=== PATIENT | female | born 1995 | race Two or more races ===

== ENCOUNTER → 2022-01-30 | Outpatient (CLI) | payer MEDICAID ==
[2022-01-30 11:21] LABS: Basophils # (auto) 0 10 ^3/uL (0-0.2); Basophils % (auto) 0.4 % (0.0-2.0); Eosinophils # (auto) 0 10 ^3/uL (0-0.8); Eosinophils % (auto) 0.6 % (0.0-7.0); Lymphocytes # (auto) 1.9 10 ^3/uL (0.4-5.4); Lymphocytes % (auto) 30.8 % (10.0-50.0); Mean Corpuscular Hemoglobin 28.3 pg (28.0-32.0); Mean Corpuscular Hgb Conc. 33.3 g/dL (32.0-36.0); Monocytes # (auto) 0.4 10 ^3/uL (0-1.3); Monocytes % (auto) 5.7 % (0.0-12.0); Neutrophils % (auto) 62.5 % (37.0-80.0); Nucleated Red Blood Cells % 0.1 %; Red Blood Cells 4.23 10^6/uL (4.0-5.20); Red Cell Distribution Width 14.1 % (11.8-14.3); White Blood Cell 6.3 10^3/uL (4.4-10.8)
[2022-01-30 12:52] LABS: Amphetamine Screen, Urine NEGATIVE (NEGATIVE); Barbiturate Scree,Urine NEGATIVE (NEGATIVE); Benzodiazephine Screen, Urine NEGATIVE (NEGATIVE); Cannabinoid Screen, Urine NEGATIVE (NEGATIVE)
[2022-01-30 12:54] LABS: Alcohol, Urine < 3.0 mg/dL (0-10); Cocaine Screen, Urine NEGATIVE (NEGATIVE); Opiate Scree,Urine NEGATIVE (NEGATIVE); Phencyclidine Screen, Urine NEGATIVE (NEGATIVE)
[2022-01-31 06:06] LABS: RPR Non Reactive (Non Reactive)
== END | disposition home or self-care (01) ==
LOC: LAB 10:27
PROVIDERS: ATTEND Obstetrics & Gynecology Obstetrics
DX: Z34.00 Encounter for supervision of normal first pregnancy, unspecified trimester (principal); Z31.430 Encounter of female for testing for genetic disease carrier status for procreative management; Z36.0 Encounter for antenatal screening for chromosomal anomalies; N39.0 Urinary tract infection, site not specified; Z3A.00 Weeks of gestation of pregnancy not specified
CPT/HCPCS: 36415; 80307; 83036; 84112; 84702; 85025; 86592; 86703; 86762; 86850; 86900; 86901; 87086; 87340

== ENCOUNTER → 2022-05-15 | Outpatient (CLI) | payer MEDICAID ==
[2022-05-15 08:24] LABS: Basophils # (auto) 0 10 ^3/uL (0-0.2); Basophils % (auto) 0.2 % (0.0-2.0); Eosinophils # (auto) 0.1 10 ^3/uL (0-0.8); Eosinophils % (auto) 1.1 % (0.0-7.0); Hematocrit 35.8 % (36.0-46.0); Hemoglobin 11.8 g/dL (12.2-16.2); Lymphocytes # (auto) 2.4 10 ^3/uL (0.4-5.4); Lymphocytes % (auto) 25.2 % (10.0-50.0); Mean Corpuscular Hemoglobin 29.4 pg (28.0-32.0); Mean Corpuscular Hgb Conc. 33.1 g/dL (32.0-36.0); Mean Corpuscular Volume 88.9 fL (80.0-100.0); Monocytes # (auto) 0.9 10 ^3/uL (0-1.3); Neutrophils # (auto) 6.1 10 ^3/uL (1.6-8.6); Neutrophils % (auto) 64.5 % (37.0-80.0); Nucleated Red Blood Cells % 0.1 %; Red Blood Cells 4.02 10^6/uL (4.0-5.20); Red Cell Distribution Width 14.3 % (11.8-14.3); White Blood Cell 9.5 10^3/uL (4.4-10.8)
== END | disposition home or self-care (01) ==
LOC: LAB 08:12
PROVIDERS: ATTEND Obstetrics & Gynecology
DX: Z34.00 Encounter for supervision of normal first pregnancy, unspecified trimester (principal); Z3A.00 Weeks of gestation of pregnancy not specified
CPT/HCPCS: 36415; 82951; 85025

== ENCOUNTER → 2022-07-19 | Outpatient (CLI) | payer MEDICAID ==
[2022-07-19 11:26] LABS: Basophils # (auto) 0 10 ^3/uL (0-0.2); Basophils % (auto) 0.4 % (0.0-2.0); Eosinophils # (auto) 0 10 ^3/uL (0-0.8); Eosinophils % (auto) 0.5 % (0.0-7.0); Hematocrit 36.7 % (36.0-46.0); Hemoglobin 12.2 g/dL (12.2-16.2); Lymphocytes # (auto) 1.6 10 ^3/uL (0.4-5.4); Lymphocytes % (auto) 19.9 % (10.0-50.0); Mean Corpuscular Hemoglobin 28.8 pg (28.0-32.0); Mean Corpuscular Hgb Conc. 33.3 g/dL (32.0-36.0); Mean Corpuscular Volume 86.6 fL (80.0-100.0); Monocytes # (auto) 0.7 10 ^3/uL (0-1.3); Monocytes % (auto) 8.3 % (0.0-12.0); Neutrophils # (auto) 5.8 10 ^3/uL (1.6-8.6); Neutrophils % (auto) 70.9 % (37.0-80.0); Red Blood Cells 4.24 10^6/uL (4.0-5.20); Red Cell Distribution Width 13.6 % (11.8-14.3); White Blood Cell 8.2 10^3/uL (4.4-10.8)
[2022-07-20 08:06] LABS: RPR Non Reactive (Non Reactive)
== END | disposition home or self-care (01) ==
LOC: LAB 11:11
PROVIDERS: ATTEND Obstetrics & Gynecology
DX: Z34.80 Encounter for supervision of other normal pregnancy, unspecified trimester (principal)
CPT/HCPCS: 36415; 84112; 85025; 86592

== ENCOUNTER 2022-08-08 08:19 | Inpatient (IN) | payer MEDICAID ==
[~2022-08-08] VITALS: Ht 157.5 cm; Wt 77.1 kg
[2022-08-08] MEDS ORDERED: PHISODERM TOP SOLN 240ML BTL TOP PRN (08:45)
[2022-08-08] MEDS ORDERED: DERMOPLAST 60ML BOTTLE TOP PRN (08:45)
[2022-08-08] MEDS ORDERED: PROMETHAZINE HCL 25 MG/ML 1ML IV PRN (08:45)
[2022-08-08] MEDS ORDERED: WITCH HAZEL-GLYCERIN PAD TOP PRN (08:45)
[2022-08-08] MEDS ORDERED: LIDOCAINE 2%HCL (LOCAL ANESTH.) INJ 20ML MDV IJ PRN (08:45)
[2022-08-08] MEDS ORDERED: LACTATED RINGER'S 1,000 ML IV SCH (08:45)
[2022-08-08] MEDS ORDERED: BUTORPHANOL TARTRATE 2 MG/1 ML VIAL IV PRN ×2 (08:45)
[2022-08-08 09:00] LABS: Basophils # (auto) 0 10 ^3/uL (0-0.2); Basophils % (auto) 0.3 % (0.0-2.0); Eosinophils # (auto) 0 10 ^3/uL (0-0.8); Eosinophils % (auto) 0.2 % (0.0-7.0); Hematocrit 39.3 % (36.0-46.0); Hemoglobin 13.2 g/dL (12.2-16.2); Lymphocytes % (auto) 17.2 % (10.0-50.0); Mean Corpuscular Hemoglobin 28.6 pg (28.0-32.0); Mean Corpuscular Hgb Conc. 33.6 g/dL (32.0-36.0); Mean Corpuscular Volume 84.9 fL (80.0-100.0); Monocytes # (auto) 0.7 10 ^3/uL (0-1.3); Monocytes % (auto) 6.1 % (0.0-12.0); Neutrophils # (auto) 8.9 10 ^3/uL (1.6-8.6); Neutrophils % (auto) 76.2 % (37.0-80.0); Nucleated Red Blood Cells % 0.1 %; Red Blood Cells 4.63 10^6/uL (4.0-5.20); Red Cell Distribution Width 13.6 % (11.8-14.3); White Blood Cell 11.7 10^3/uL (4.4-10.8)
[2022-08-08 09:14] LABS: INR 0.88 (0.9-1.15); Partial Thromboplastin Time 27.9 sec (24.6-33.4)
[2022-08-08 09:18] LABS: Albumin 3.1 g/dL (3.4-5.0); Calcium 9.1 mg/dL (8.5-10.1); Potassium 3.6 mmol/L (3.5-5.1)
[2022-08-08 09:22] LABS: BUN/Creatinine Ratio 17.2 (10.0-20.0); Bilirubin, Total 0.7 mg/dL (0.2-1.0); Total Protein 7.4 g/dL (6.4-8.2)
[2022-08-08] MEDS ORDERED: LACT. RINGERS/OXYTOCIN 20UNITS 500 ML IV ONE ×2 (09:30→10:00)
[2022-08-08] MEDS ORDERED: ePHEDrine SULFATE 50 MG/ML AMP IV ONE (09:30)
[2022-08-08] MEDS ORDERED: NALOXONE HCL 0.4 MG/ML VIAL IV ONE (09:30)
[2022-08-08] MEDS ORDERED: ROPIVACAINE HCL 200 ML EPI SCH (09:30)
[2022-08-08] MEDS ORDERED: LACTATED RINGER'S 1,000 ML IV ONE (09:30)
[2022-08-08] MEDS ORDERED: fentaNYL CITRATE 100 MCG/2 ML VL IV ONE (09:30)
[2022-08-08] MEDS ORDERED: Lidocaine W-Epinephrine 1.5%-1:200,000 INJ 10ml Vial IJ ONE (09:30)
[2022-08-08 09:32] LABS: Urine Bacteria NONE SEEN /hpf (None Seen); Urine Blood 3+ /uL (Negative); Urine Mucus FEW (None Seen); Urine Specific Gravity 1.022 (1.001-1.035); Urine WBC 9 /hpf (0 - 5)
[2022-08-08 09:39] LABS: Alcohol, Urine < 3.0 mg/dL (0-10); Amphetamine Screen, Urine NEGATIVE (NEGATIVE); Barbiturate Scree,Urine NEGATIVE (NEGATIVE); Benzodiazephine Screen, Urine NEGATIVE (NEGATIVE); Cannabinoid Screen, Urine NEGATIVE (NEGATIVE); Cocaine Screen, Urine NEGATIVE (NEGATIVE); Opiate Scree,Urine NEGATIVE (NEGATIVE); Phencyclidine Screen, Urine NEGATIVE (NEGATIVE)
[2022-08-08] MEDS ORDERED: IBUPROFEN 600 MG TAB PO PRN (17:00)
[2022-08-08] MEDS ORDERED: ACETAMINOPHEN 325 MG TAB PO PRN (17:00)
[2022-08-08 18:30] VITALS: BP 132/73
[2022-08-08 22:40] VITALS: BP 127/70
[2022-08-09] MEDS ORDERED: TETANUS-DIPTH-ACEL PERTUSSIS 0.5ML SYR Tdap IM ONE (02:15)
[2022-08-09 02:40] VITALS: BP 123/75
[2022-08-09 07:00] VITALS: BP 130/83
[2022-08-09 07:07] LABS: RPR Non Reactive (Non Reactive)
[2022-08-09 11:00] VITALS: BP 137/90
[2022-08-09 15:10] VITALS: BP 125/81
== END 2022-08-09 17:47 | disposition home or self-care (01) | DRG 560 ==
LOC: LDRP 08:19 → OBSVTOIN 08:34 → LDRP 08:35
PROVIDERS: ADMIT Obstetrics & Gynecology; ATTEND Obstetrics & Gynecology
PROC: 10E0XZZ Delivery of Products of Conception, External Approach (ICD-10-PCS; principal; 2022-08-08)
PROC: 0KQM0ZZ Repair Perineum Muscle, Open Approach (ICD-10-PCS; 2022-08-08)
PROC: 3E0R3BZ Introduction of Anesthetic Agent into Spinal Canal, Percutaneous Approach (ICD-10-PCS; 2022-08-08)
PROC: 00HU33Z Insertion of Infusion Device into Spinal Canal, Percutaneous Approach (ICD-10-PCS; 2022-08-08)
DX: O69.81X0 Labor and delivery complicated by cord around neck, without compression, not applicable or unspecified (principal); Z37.0 Single live birth; O70.1 Second degree perineal laceration during delivery; Z3A.39 39 weeks gestation of pregnancy
CPT/HCPCS: 36415; 59025; 59409; 62282; 80053; 80307; 81001; 85025; 85610; 85730; 86592; 86850; 86900; 86901; 90715; 94760; 96360; 96361; 96365; 96366; 96372; G0378; J2590

== ENCOUNTER → 2023-03-28 | Outpatient (CLI) | payer MEDICAID ==
[2023-03-28 15:35] LABS: Basophils # (auto) 0 10 ^3/uL (0-0.2); Basophils % (auto) 0.5 % (0.0-2.0); Eosinophils # (auto) 0.1 10 ^3/uL (0-0.8); Eosinophils % (auto) 1.2 % (0.0-7.0); Hematocrit 40.7 % (36.0-46.0); Hemoglobin 13.4 g/dL (12.2-16.2); Lymphocytes # (auto) 1.7 10 ^3/uL (0.4-5.4); Lymphocytes % (auto) 32.4 % (10.0-50.0); Mean Corpuscular Hemoglobin 28.3 pg (28.0-32.0); Mean Corpuscular Hgb Conc. 32.8 g/dL (32.0-36.0); Mean Corpuscular Volume 86.2 fL (80.0-100.0); Monocytes # (auto) 0.4 10 ^3/uL (0-1.3); Monocytes % (auto) 6.9 % (0.0-12.0); Nucleated Red Blood Cells % 0.1 %; Red Blood Cells 4.73 10^6/uL (4.0-5.20); Red Cell Distribution Width 13.8 % (11.8-14.3); White Blood Cell 5.2 10^3/uL (4.4-10.8)
[2023-03-28 16:31] LABS: T3 Total 1.2 ng/mL (0.60-1.81)
[2023-03-28 16:32] LABS: Free T4 (Free Thyroxine) 1.1 ng/dL (0.89-1.76)
[2023-03-28 17:07] LABS: Thyroid Stimulating Hormone 1.32 uIU/mL (0.358-3.74)
[2023-03-29 08:06] LABS: RPR Non Reactive (Non Reactive)
== END | disposition home or self-care (01) ==
LOC: LAB 14:41
PROVIDERS: ATTEND Obstetrics & Gynecology
DX: Z34.80 Encounter for supervision of other normal pregnancy, unspecified trimester (principal); Z31.430 Encounter of female for testing for genetic disease carrier status for procreative management; Z3A.00 Weeks of gestation of pregnancy not specified
CPT/HCPCS: 36415; 82306; 84144; 84439; 84443; 84480; 84702; 85025; 86592; 86703; 86762; 86850; 86900; 86901; 87086; 87340

== ENCOUNTER 2023-08-05 10:11 | Emergency (ER) | payer MEDICAID ==
[~2023-08-05] VITALS: Ht 157.5 cm; Wt 67.7 kg
[2023-08-05 10:38] VITALS: BP 140/89; PULSE 92; RESP 16; TEMP 99.2; O2SAT 99
[2023-08-05 10:58] LABS: Urine Amorphous Crystal FEW /hpf (None Seen); Urine Bacteria FEW /hpf (None Seen); Urine Blood 3+ /uL (Negative); Urine Clarity Turbid (Clear); Urine Color Colorless (Yellow); Urine Protein, UAD TRACE (Negative); Urine Specific Gravity 1.013 (1.001-1.035); Urine Urobilinogen Normal (Negative); Urine WBC 16 /hpf (0 - 5); Urine pH 7.5 (5.0-9.0)
[2023-08-05] MEDS ORDERED: CEFP200T15 PO (11:15)
== END 2023-08-05 11:18 | disposition home or self-care (01) ==
LOC: ER 10:11
DX: O23.42 Unspecified infection of urinary tract in pregnancy, second trimester (principal); Z3A.24 24 weeks gestation of pregnancy; Z79.899 Other long term (current) drug therapy
CPT/HCPCS: 81001; 81025

== ENCOUNTER → 2023-08-27 | Outpatient (CLI) | payer MEDICAID ==
[~2023-08-27] MED LIST: CEFP200T15 PO
== END | disposition home or self-care (01) ==
LOC: LAB 08:13
PROVIDERS: ATTEND Obstetrics & Gynecology
DX: Z34.80 Encounter for supervision of other normal pregnancy, unspecified trimester (principal); Z72.51 High risk heterosexual behavior; Z3A.00 Weeks of gestation of pregnancy not specified
CPT/HCPCS: 82951

== ENCOUNTER → 2023-09-18 | Outpatient (CLI) | payer MEDICAID ==
[2023-09-18 10:25] LABS: Basophils # (auto) 0 10 ^3/uL (0-0.2); Basophils % (auto) 0.3 % (0.0-2.0); Eosinophils # (auto) 0 10 ^3/uL (0-0.8); Eosinophils % (auto) 0.6 % (0.0-7.0); Hematocrit 36.3 % (36.0-46.0); Hemoglobin 12.2 g/dL (12.2-16.2); Lymphocytes # (auto) 1.8 10 ^3/uL (0.4-5.4); Mean Corpuscular Hgb Conc. 33.5 g/dL (32.0-36.0); Mean Corpuscular Volume 89.6 fL (80.0-100.0); Monocytes # (auto) 0.6 10 ^3/uL (0-1.3); Monocytes % (auto) 7.5 % (0.0-12.0); Neutrophils # (auto) 5.1 10 ^3/uL (1.6-8.6); Neutrophils % (auto) 67.6 % (37.0-80.0); Red Blood Cells 4.05 10^6/uL (4.0-5.20); Red Cell Distribution Width 13.8 % (11.8-14.3); White Blood Cell 7.5 10^3/uL (4.4-10.8)
[2023-09-19 07:07] LABS: RPR Non Reactive (Non Reactive)
== END | disposition home or self-care (01) ==
LOC: LAB 10:06
PROVIDERS: ATTEND Obstetrics & Gynecology
DX: Z34.80 Encounter for supervision of other normal pregnancy, unspecified trimester (principal); Z3A.00 Weeks of gestation of pregnancy not specified
CPT/HCPCS: 36415; 82728; 83540; 83550; 85025; 86592

== ENCOUNTER 2023-10-26 16:55 | Observation (INO) | payer MEDICAID | END 2023-10-26 18:11 | disposition home or self-care (01) | LOC: LDRP 16:55 | PROVIDERS: ADMIT Obstetrics & Gynecology; ATTEND Obstetrics & Gynecology | DX: O36.8130 Decreased fetal movements, third trimester, not applicable or unspecified (principal); Z3A.35 35 weeks gestation of pregnancy | CPT/HCPCS: 59025; 76818; 81002; 94760; G0378 ==

== ENCOUNTER 2023-11-17 16:18 | Observation (INO) | payer MEDICAID | END 2023-11-17 17:33 | disposition home or self-care (01) | LOC: LDRP 16:18 | PROVIDERS: ADMIT Obstetrics & Gynecology; ATTEND Obstetrics & Gynecology | DX: O62.9 Abnormality of forces of labor, unspecified (principal); O26.893 Other specified pregnancy related conditions, third trimester; R10.9 Unspecified abdominal pain; Z3A.39 39 weeks gestation of pregnancy | CPT/HCPCS: 59025; 81002; 94760; G0378 ==

== ENCOUNTER 2023-11-18 02:32 | Observation (INO) | payer MEDICAID ==
[~2023-11-18] VITALS: Ht 157.5 cm; Wt 74.8 kg
[2023-11-19] MEDS ORDERED: IBU600T PO (10:48)
== END 2023-11-18 03:58 | disposition home or self-care (01) ==
LOC: LDRP 02:32
PROVIDERS: ADMIT Obstetrics & Gynecology; ATTEND Obstetrics & Gynecology
DX: O62.9 Abnormality of forces of labor, unspecified (principal); Z3A.39 39 weeks gestation of pregnancy
CPT/HCPCS: 59025; 81002; 94760; G0378

== ENCOUNTER 2023-11-18 06:14 | Inpatient (IN) | payer MEDICAID ==
[~2023-11-18] VITALS: Ht 157.5 cm; Wt 68.0 kg
[2023-11-18] MEDS: LACT. RINGERS/OXYTOCIN 20UNITS 1,000 ML IV ONE (06:23)
[2023-11-18] MEDS ORDERED: LIDOCAINE 2%HCL (LOCAL ANESTH.) INJ 20ML MDV IJ PRN (06:30)
[2023-11-18] MEDS: TRANEXAMIC ACID 1,000 MG in SODIUM CHL 0.9% 100 ML IV ONE (06:30)
[2023-11-18] MEDS ORDERED: miSOPROStol 100 mcg TAB PR PRN (06:30)
[2023-11-18] MEDS ORDERED: METHYLERGONOVINE MALEATE 0.2 MG/ML AMP IM PRN (06:30)
[2023-11-18] MEDS ORDERED: ONDANSETRON HCL 4 MG/2 ML VIAL IV PRN (06:30)
[2023-11-18] MEDS ORDERED: CARBOPROST TROMETHAMINE 250 MCG/1ML VIAL IM PRN (06:30)
[2023-11-18] MEDS ORDERED: miSOPROStol 100 mcg TAB SL PRN (06:30)
[2023-11-18] MEDS: ePHEDrine SULFATE 50 MG/ML AMP IV ONE ×2 (06:45→07:00)
[2023-11-18] MEDS: fentaNYL CITRATE 100 MCG/2 ML VL IV ONE (06:45)
[2023-11-18] MEDS: PHISODERM TOP SOLN 240ML BTL TOP PRN (06:57)
[2023-11-18] MEDS: WITCH HAZEL-GLYCERIN PAD TOP PRN (06:57)
[2023-11-18] MEDS: DERMOPLAST 60ML BOTTLE TOP PRN (06:57)
[2023-11-18] MEDS: LACTATED RINGER'S 1,000 ML IV SCH (06:58)
[2023-11-18 06:59] LABS: Basophils # (auto) 0 10 ^3/uL (0-0.2); Basophils % (auto) 0.3 % (0.0-2.0); Eosinophils # (auto) 0 10 ^3/uL (0-0.8); Eosinophils % (auto) 0.5 % (0.0-7.0); Hematocrit 40.2 % (36.0-46.0); Hemoglobin 13.8 g/dL (12.2-16.2); Lymphocytes # (auto) 3.1 10 ^3/uL (0.4-5.4); Lymphocytes % (auto) 30.1 % (10.0-50.0); Mean Corpuscular Hemoglobin 30.4 pg (28.0-32.0); Mean Corpuscular Hgb Conc. 34.2 g/dL (32.0-36.0); Monocytes # (auto) 0.8 10 ^3/uL (0-1.3); Monocytes % (auto) 7.6 % (0.0-12.0); Neutrophils # (auto) 6.4 10 ^3/uL (1.6-8.6); Neutrophils % (auto) 61.5 % (37.0-80.0); Nucleated Red Blood Cells % 0.1 %; Red Blood Cells 4.52 10^6/uL (4.0-5.20); Red Cell Distribution Width 13.7 % (11.8-14.3); White Blood Cell 10.3 10^3/uL (4.4-10.8)
[2023-11-18] MEDS: LACTATED RINGER'S 1,000 ML IV ONE ×2 (06:59→07:08)
[2023-11-18] MEDS: NALOXONE HCL 0.4 MG/ML VIAL IV ONE (07:00)
[2023-11-18 07:13] LABS: Alanine Aminotransferase 15 U/L (7-40); Albumin 4.3 g/dL (3.2-4.8); Alkaline Phosphatase 166 U/L (46-116); Anion Gap 14 (5-15); Aspartate Aminotransferase 23 U/L (13-40); Blood Urea Nitrogen 6 mg/dL (9-23); Calcium 9.4 mg/dL (8.7-10.4); Carbon Dioxide 17 mmol/L (20-30); Chloride 105 mmol/L (98-107); Glucose 93 mg/dL (74-106); Potassium 3.5 mmol/L (3.5-5.1); Sodium 136 mmol/L (136-145)
[2023-11-18 07:15] LABS: INR 0.92 (0.9-1.15); Partial Thromboplastin Time 28.7 SEC (24.5-34.5); Prothrombin Time 9.8 sec (9.3-11.8)
[2023-11-18 07:30] LABS: Urine Bacteria None Seen /hpf (None Seen)
[2023-11-18 07:47] LABS: Urine Amorphous Crystal FEW /hpf (None Seen); Urine Blood Negative /uL (Negative); Urine Clarity Clear (Clear); Urine Color Light-Yellow (Yellow); Urine Protein, UAD TRACE (Negative); Urine Specific Gravity 1.016 (1.001-1.035); Urine Urobilinogen Normal (Negative); Urine WBC <1 /hpf (0 - 5)
[2023-11-18 07:53] LABS: Amphetamine Screen, Urine Neg (NEGATIVE); Benzodiazephine Screen, Urine Neg (NEGATIVE)
[2023-11-18 07:54] LABS: Barbiturate Scree,Urine Neg (NEGATIVE); Cannabinoid Screen, Urine Neg (NEGATIVE); Cocaine Screen, Urine Neg (NEGATIVE); Opiate Scree,Urine Neg (NEGATIVE); Phencyclidine Screen, Urine Neg (NEGATIVE)
[2023-11-18] MEDS: ROPIVACAINE HCL 200 ML ONE (08:53)
[2023-11-18] MEDS: LACT. RINGERS/OXYTOCIN 20UNITS 500 ML IV ONE ×2 (09:48→09:49)
[2023-11-18] MEDS: DIPHENOXYLATE W/ATROPINE 2.5 MG TAB PO SCH (10:00)
[2023-11-18 18:45] VITALS: BP 128/69; PULSE 88; RESP 18; TEMP 98.7; O2SAT 98
[2023-11-18] MEDS ORDERED: ACETAMINOPHEN 325 MG TAB PO PRN (19:45)
[2023-11-18] MEDS ORDERED: IBUPROFEN 600 MG TAB PO PRN (19:45)
[2023-11-18 23:17] VITALS: BP 119/67; PULSE 77; RESP 16; TEMP 98.5; O2SAT 97
[2023-11-19 03:00] VITALS: BP 113/67; PULSE 81; RESP 16; TEMP 98.5; O2SAT 98
[2023-11-19 07:00] VITALS: BP 119/64; PULSE 63; RESP 18; TEMP 98.5; O2SAT 100
[2023-11-19] MEDS ORDERED: IBU600T PO (10:48)
[2023-11-19 11:15] VITALS: BP 126/76; PULSE 74; RESP 20; TEMP 98.8; O2SAT 99
[2023-11-21 12:47] LABS: RPR Non Reactive (Non Reactive); Rubella Antibodies, IgG 1.67 index (Immune >0.99)
== END 2023-11-19 15:08 | disposition home or self-care (01) | DRG 560 ==
LOC: LDRP 06:14 → OBSVTOIN 06:26
PROVIDERS: ADMIT Obstetrics & Gynecology; ATTEND Obstetrics & Gynecology
PROC: 10E0XZZ Delivery of Products of Conception, External Approach (ICD-10-PCS; principal; 2023-11-18)
DX: O80 Encounter for full-term uncomplicated delivery (principal); Z37.0 Single live birth; Z3A.39 39 weeks gestation of pregnancy
CPT/HCPCS: 36415; 59025; 59409; 62282; 80053; 80307; 81001; 81002; 85025; 85610; 85730; 86592; 86703; 86762; 86803; 86850; 86900; 86901; 87340; 94760; 96360; 96361; 96365; 96366; G0378; J2405; J2590

== ENCOUNTER 2025-01-27 09:12 | Observation (INO) | payer MEDICAID ==
[~2025-01-27 09:12] MED LIST changes: -CEFP200T15 PO; +IBU600T PO
[2025-01-27] MEDS ORDERED: PREN-96 PO (10:10)
[2025-01-27] MEDS ORDERED: ASPI-543 PO (10:10)
--- NOTE | 2025-01-27 10:25 | DVH ---
BIOPHYSICAL PROFILE HISTORY: Ce TECHNIQUE: Multiple transabdominal real-time grayscale sonographic images through the gravid uterus o f the fetus with duplex doppler color flow and M-mode spectral analysis FINDINGS: BIOPHYSICAL PROFILE: breathing score: 2 movement score: 2 tone score: 2 Quantitative JOSE E score: 2 (JOSE E: 22.4 cm.) Total score: 8/8 Single live fetus in cephalic presentation. heart rate 137 beats per minute. Anterior placenta without previa or abruption Biophysical profile score 8/8 corresponding to an KATIE of 03/23/25 IMPRESSION: Biophysical profile score: 8/8
--- NOTE | 2025-01-27 10:35 | DVHDS2 ---
Physician Discharge Progress N Final Diagnosis: testing for polyhydramnios Operations or Procedures: Operations or Procedures 29yo IUP@32.1wks VSS per RN NST reactive per RN BPP /, JOSE E 22.4 cm, Vertex FKC/PTL/preE precautions reviewed Dr. Rae consulted, agrees with POC. Condition on Discharge: Stable Disposition: Home Discharge Instructions: Diet: Regular Activity: No Restrictions, As Tolerated Follow Up/Referral: Medications: see med list Follow Up Care: Specialist: f/u in 1wk Discharge Statement: "Patient was advised to return to the ER or call 911 if any headaches, dizziness, shortness of breath, chest pain, abdominal pain, bleeding, fevers, or worsening of medical condition. Patient was counseled about treatment plan, medications, possible side effects, patientverbalized understanding. All questions were answered to the best of my ability. This discharge took greater then 30 minutes in planning, reviewing documentation, counseling the patient, and discussing with other team members." Visit Coding OBGYN Date of Service: Jan 27, 2025 Billing Provider: LIBERTY ALVARES CNM SURGICAL ATTENDANT Common Visit Codes: 60898-[id number] OBS CARE (HIGH) SURGICAL ATTENDANT Procedure Codes: 30411-10- NON-STRESS TEST LIBERTY ALVARES CNM Jan 27, 2025 10:35
== END 2025-01-27 10:29 | disposition home or self-care (01) ==
LOC: LDRP 09:12 → UNDOADMOB 09:12 → LDRP 09:21
PROVIDERS: ADMIT Obstetrics & Gynecology; ATTEND Obstetrics & Gynecology
DX: O40.3XX0 Polyhydramnios, third trimester, not applicable or unspecified (principal); Z3A.32 32 weeks gestation of pregnancy; Z98.890 Other specified postprocedural states
CPT/HCPCS: 59025; 76819; 81002; 94760; G0378

== ENCOUNTER 2025-02-03 05:45 | Observation (INO) | payer MEDICAID ==
[~2025-02-03 05:45] MED LIST changes: +ASPI-543 PO; +PREN-96 PO
--- NOTE | 2025-02-03 09:21 | DVHDS2 ---
Physician Discharge Progress N Final Diagnosis: testing for polyhydramnios Operations or Procedures: Operations or Procedures 29yo IUP@33.1wks VSS NST reactive FKC/PTL precautions reviewed Dr. Rae consulted, agrees with POC. Other Interventions Other Interventions [address] [address] Ph: [phone] DIAGNOSTIC IMAGING Diagnostic Imaging Report : [id number] Signed PATIENT: MATT COUGHLIN ACCT: [id number] UNIT: [id number] : 1995 LOC: [facility] ROOM / BED: TRIAGE1 / A AGE / SEX: 29 / F ADM STATUS: ADM IN SERVICE 7 ORDERING PHYSICIAN: LIBERTY ALVARES CNM PROCEDURE(s): BPP - BIOPHYSICAL PROFILE REASON: poly ORDER NUMBER(s): [id number], ACCESSION NUMBER(s): [id number] BIOPHYSICAL PROFILE HISTORY: poly TECHNIQUE: Multiple transabdominal real-time grayscale sonographic images through the gravid uterus of the fetus with duplex Doppler color flow and M-mode spectral analysis FINDINGS: BIOPHYSICAL PROFILE: breathing score: 2 movement score: 2 tone score: 2 Quantitative JOSE E score: 2 (JOSE E: 21.4 Cm.) Total score: 8 The cervix not well visualized. Single live fetus in cephalic presentation. heart rate 134 beats per min gwendolyn. Anterior placenta without previa or abruption Possible nuchal cord is visualized. IMPRESSION: Biophysical profile score: 8 Possible nuchal cord is visualized. ATED BY: ALEKSANDR SOTO MD DICTATED DATE/TIME: 02/03/25918 SIGNED BY: ALEKSANDR SOTO MD SIGNED DATE/TIME: 02/03/25918 CC: Condition on Discharge: Stable Disposition: Home Discharge Instructions: Diet: Regular Activity: No Restrictions, As Tolerated Medications: see med list Follow Up Care: Specialist: f/u in 1wk Discharge Statement: "Patient was advised to return to the ER or call 911 if any headaches, dizziness, shortness of breath, chest pain, abdominal pain, bleeding, fevers, or worsening of medical condition. Patient was counseled about treatment plan, medications, possible side effects, patientverbalized understanding. All questions were answered to the best of my ability. This discharge took greater then 30 minutes in planning, reviewing documentation, counseling the patient, and discussing with other team members." Visit Coding OBGYN Date of Service: Feb 03, 2025 Billing Provider: LIBERTY ALVARES CNM TRUCKMAN Common Visit Codes: 77394-[id number] OBS CARE (HIGH) TRUCKMAN Procedure Codes: 71554-10- NON-STRESS TEST LIBERTY ALVARES CNM Feb 03, 2025 09:21
== END 2025-02-03 09:20 | disposition home or self-care (01) ==
LOC: LDRP 08:08
PROVIDERS: ADMIT Obstetrics & Gynecology; ATTEND Obstetrics & Gynecology
DX: O40.3XX0 Polyhydramnios, third trimester, not applicable or unspecified (principal); Z3A.33 33 weeks gestation of pregnancy; Z79.899 Other long term (current) drug therapy; Z98.890 Other specified postprocedural states
CPT/HCPCS: 59025; 76819; 81002; 94760; G0378

== ENCOUNTER 2025-02-07 18:41 | Observation (INO) | payer MEDICAID ==
[2025-02-07 19:25] LABS: Urine Protein, UAD Negative (Negative)
--- NOTE | 2025-02-07 19:45 | DVHDS2 ---
Physician Discharge Progress N Final Diagnosis: Hematuria in Operations or Procedures: Operations or Procedures NST Commentary: Commentary UA 3+ blood. Asymptomatic No other UA evidence of UTI Urine culture pending No vaginal bleeding status reassuring Condition on Discharge: Good Disposition: Home Discharge Instructions: Diet: Regular Activity: Light activity Follow Up/Referral: See Dr Rae this week Needs full work up for hematuria if it's confirmed on a separate occasion Medications: N/A Follow Up Care: Discharge Statement: "Patient was advised to return to the ER or call 911 if any headaches, dizziness, shortness of breath, chest pain, abdominal pain, bleeding, fevers, or worsening of medical condition. Patient was counseled about treatment plan, medications, possible side effects, patientverbalized understanding. All questions were answered to the best of my ability. This discharge took greater then 30 minutes in planning, reviewing document ation, counseling the patient, and discussing with other team members." Visit Coding OBGYN Date of Service: Feb 07, 2025 Billing Provider: NUBIA BLOCK DO DIE TURNER Common Visit Codes: 57374-XPW/OBS SAME DATE (HIGH) DIE TURNER Procedure Codes: 39721-24- NON-STRESS TEST NUBIA BLCOK DO Feb 07, 2025 19:45
== END 2025-02-07 20:35 | disposition home or self-care (01) ==
LOC: LDRP 18:41
PROVIDERS: ADMIT Obstetrics & Gynecology; ATTEND Obstetrics & Gynecology
DX: O26.893 Other specified pregnancy related conditions, third trimester (principal); R31.9 Hematuria, unspecified; Z3A.33 33 weeks gestation of pregnancy; Z98.890 Other specified postprocedural states
CPT/HCPCS: 59025; 81001; 81002; 87086; 94760; G0378

== ENCOUNTER 2025-02-09 06:21 | Observation (INO) | payer MEDICAID ==
[~2025-02-09] VITALS: Ht 157.5 cm; Wt 72.6 kg
--- NOTE | 2025-02-09 08:55 | DVH ---
BIOPHYSICAL PROFILE HISTORY: poly TECHNIQUE: Multiple transabdominal real-time grayscale sonographic images through the gravid uterus o f the fetus with duplex doppler color flow and M-mode spectral analysis FINDINGS: BIOPHYSICAL PROFILE: breathing score: 2 movement score: 2 tone score: 2 Quantitative JOSE E score: 2 (JOSE E: 20.0 cm.) Total score: 8/8 Single live fetus in cephalic presentation. heart rate 153 beats per minute. Grade 2 anterior placenta without previa or abruption Biophysical profile score 8/8 corresponding to an KATIE of 03/23/25 IMPRESSION: Biophysical profile score: 8/8
[2025-02-09] MEDS: TERBUTALINE SULFATE 1 MG/ML 1ML VIAL SC SCH (09:28)
--- NOTE | 2025-02-09 23:09 | DVHDS2 ---
Discharge Summary Date of Admission Feb 09, 2025 at 08:04 Date of Discharge: Feb 09, 2025 Admitting Diagnosis Thirty-four her friends to the P2 polyhydramnios Brief Hx & Hospital Course: NST BP P 34 week polyhydramnios Operations or Procedures NST BPP Condition at Discharge: Good Final Diagnosis/Problems List NSTBPP polyhydramnios Discharge Disposition: Home Discharge Instruct/Medications Diet: Regular Activity: No Restrictions, As Tolerated Scheduled Aspirin (Aspir-Low), 81 MG PO DAILY, (Reported) Vit W/ Ferrous Fumara ( One Daily), 1 TAB PO DAILY, (Reported) Scheduled PRN Ibuprofen Micronized (Motrin Tablet), 600 MG PO Q6HP PRN Discharge Statement: "Patient was advised to return to the ER or call 911 if any headaches, dizz iness, shortness of breath, chest pain, abdominal pain, bleeding, fevers, or worsening of medical condition. Patient was counseled about treatment plan, medications, possible side effects, patientverbalized understanding. All questions were answered to the best of my ability. This discharge took greater then 30 minutes in planning, reviewing documentation, counseling the patient, and discussing with other team members." ASSESSMENT ASSESSMENT Assessment Visit Coding OBGYN Date of Service: Feb 09, 2025 Billing Provider: CEZAR HALE DO UPKEEP WORKER Common Visit Codes: 05469-[id number] INP/OBS CARE(MOD), 24098-MMXIKREZSZ INP/OBS CARE(HIGH), 28923-TNH/OBS SAME DATE (LOW) UPKEEP WORKER Procedure Codes: 21274-22- NON-STRESS TEST CEZAR HALE DO Feb 09, 2025 23:09
== END 2025-02-09 09:55 | disposition home or self-care (01) ==
LOC: LDRP 08:04
PROVIDERS: ADMIT Obstetrics & Gynecology; ATTEND Obstetrics & Gynecology
DX: O40.3XX0 Polyhydramnios, third trimester, not applicable or unspecified (principal); Z3A.34 34 weeks gestation of pregnancy; Z98.890 Other specified postprocedural states
CPT/HCPCS: 59025; 76819; 81002; 96372; G0378; J3105

== ENCOUNTER 2025-02-16 06:50 | Observation (INO) | payer MEDICAID ==
--- NOTE | 2025-02-16 08:52 | DVH ---
BIOPHYSICAL PROFILE HISTORY: Poly Comparison Study: US BIOPHYSICAL PROFILE on DOS: 02/09/25, US BIOPHYSICAL PROFILE on DOS: 02/03/25, US BIOPHYSICAL PROFILE on DOS: 01/27/25, US BIOPHYSICAL PROFILE on DOS: 10/26/23 TECHNIQUE: Multiple real-time grayscale sonographic images through the gravid uterus of the fetus with duplex Doppler color flow and M-mode spectral analysis FINDINGS: BIOPHYSICAL PROFILE: breathing score: 2 movement score: 2 tone score: 2 Quantitative JOSE E score: 2 (JOSE E: 20.5 Cm.) Total score: 8 The cervix is not visualized Single live fetus in cephalic presentation. heart rate 144 beats per minute. Grade 2, anterior placenta without previa or abruption IMPRESSION: Biophysical profile score: 8 Incidental note of debris in the gallbladder.
--- NOTE | 2025-02-17 05:48 | DVHDS2 ---
Discharge Summary Date of Admission Feb 16, 2025 at 07:59 Date of Discharge: Feb 16, 2025 Admitting Diagnosis Thirty-five week polyhydramnios here for NST BPP both performed both reassuring Brief Hx & Hospital Course: NST BPP performed reassuring Operations or Procedures NST BPP Condition at Discharge: Good Final Diagnosis/Problems List 35 week reassuring polyhydramnios Discharge Disposition: Home Discharge Instruct/Medications Diet: Regular Activity: No Restrictions, As Tolerated Activity comment: Kick counts labor precautions Scheduled Aspirin (Aspir-Low), 81 MG PO DAILY, (Reported) Vit W/ Ferrous Fumara ( One Daily), 1 TAB PO DAILY, (Reported) Scheduled PRN Ibuprofen Micronized (Motrin Tablet), 600 MG PO Q6HP PRN Discharge Statement: "Patient was advised to return to the ER or call 911 if any headaches, dizziness, shortness of breath, chest pain, abdominal pain, bleeding, fevers, or worsening of medical condition. Patient was counseled about treatment plan, medications, possible side effects, patientverbalized understanding. All questions were answered to the best of my ability. This discharge took greater then 30 minutes in planning, reviewing documentation, counseling the patient, and discussing with other team members." ASSESSMENT ASSESSMENT Assessment Visit Coding OBGYN Date of Service: Feb 16, 2025 Billing Provider: CEZAR HALE DO TRACTOR DRIVER TEAMSTER Common Visit Codes: 69901-[id number] INP/OBS CARE(HIGH), 20672-MJG/OBS SAME DATE (LOW), 53100-QHG/OBS SAME DATE (MOD) TRACTOR DRIVER TEAMSTER Procedure Codes: 62584-85- NON-STRESS TEST CEZAR HALE DO Feb 17, 2025 05:48
== END 2025-02-16 09:20 | disposition home or self-care (01) ==
LOC: LDRP 07:59
PROVIDERS: ADMIT Obstetrics & Gynecology; ATTEND Obstetrics & Gynecology
DX: O40.3XX0 Polyhydramnios, third trimester, not applicable or unspecified (principal); Z3A.35 35 weeks gestation of pregnancy; Z98.890 Other specified postprocedural states
CPT/HCPCS: 59025; 76819; 81002; 94760; G0378

== ENCOUNTER 2025-02-19 06:11 | Observation (INO) | payer MEDICAID ==
--- NOTE | 2025-02-19 09:47 | DVH ---
BIOPHYSICAL PROFILE HISTORY: poly Comparison Study: US BIOPHYSICAL PROFILE on DOS: 02/16/25, US BIOPHYSICAL PROFILE on DOS: 02/09/25, US BIOPHYSICAL PROFILE on DOS: 02/03/25, US BIOPHYSICAL PROFILE on DOS: 01/27/25, US BIOPHYSICAL PROFILE on DOS: 10/26/23 TECHNIQUE: Multiple real-time grayscale sonographic images through the gravid uterus of the fetus with duplex Doppler color flow and M-mode spectral analysis FINDINGS: BIOPHYSICAL PROFILE: breathing score: 2 movement score: 2 tone score: 2 Quantitative JOSE E score: 2 (JOSE E: 17.9 Cm.) Total score: 8 The cervix is not evaluated Single live fetus in cephalic presentation. heart rate 138 beats per minute. Anterior placenta without previa or abruption IMPRESSION: Biophysical profile score: 8
--- NOTE | 2025-02-20 13:21 | DVHDS2 ---
Physician Discharge Progress N Final Diagnosis: polyhydramnia 35wks Operations or Procedures: Operations or Procedures nst reactive reviwed,sono Condition on Discharge: Good Disposition: Home Discharge Instructions: Diet: Regular, Consistent carbohydrate Activity: No Restrictions, As Tolerated Medications: na Follow Up Care: Specialist: 3d Discharge Statement: "Patient was advised to return to the ER or call 911 if any headaches, dizziness, shortness of breath, chest pain, abdominal pain, bleeding, fevers, or worsening of medical condition. Patient was counseled about treatment plan, medications, possible side effects, patientverbalized understanding. All questions were answered to the best of my ability. This discharge took greater then 30 minutes in planning, reviewing documentation, counseling the patient, and discussing with other team members." Visit Coding OBGYN Date of Service: Feb 19, 2025 Billing Provider: PATRICIA RANDOLPH DO QUARRY EQUIPMENT OPERATOR Common Visit Codes: 39011-SEKFEXG OBS CARE (HIGH) QUARRY EQUIPMENT OPERATOR Procedure Codes: 02553-81- NON-STRESS TEST PATRICIA RANDOLPH DO Feb 20, 2025 13:21
== END 2025-02-19 10:07 | disposition home or self-care (01) ==
LOC: LDRP 08:58
PROVIDERS: ADMIT Obstetrics & Gynecology; ATTEND Obstetrics & Gynecology
DX: O42.913 Preterm premature rupture of membranes, unspecified as to length of time between rupture and onset of labor, third trimester (principal); Z3A.35 35 weeks gestation of pregnancy; Z98.890 Other specified postprocedural states
CPT/HCPCS: 59025; 76819; 81002; 94760; G0378

== ENCOUNTER 2025-03-04 18:39 | Observation (INO) | payer MEDICAID ==
[~2025-03-04] VITALS: Ht 157.5 cm; Wt 74.8 kg
--- NOTE | 2025-03-04 19:37 | DVH ---
BIOPHYSICAL PROFILE HISTORY: NO HEART TONES AUSCULTATED TECHNIQUE: Multiple transabdominal real-time grayscale sonographic images through the gravid uterus of the fetus with duplex Doppler color flow and M-mode spectral analysis FINDINGS: BIOPHYSICAL PROFILE: breathing score: 0 movement score: 0 tone score: 0 Quantitative JOSE E score: 2 (JOSE E: 8. Cm.) Total score: 2/8 The cervix not visualized Single live fetus in cephalic presentation. heart rate 0 beats per minute. Anterior Grade 2-3 placenta without previa or abruption Single fetus at 37 weeks 2 days Biophysical profile score 2/8 corresponding to an KATIE of 03/23/2025. Estimated weight not calculated g IMPRESSION: 1. Biophysical profile score: 2/[address] Rae notified of results.
[2025-03-04] MEDS ORDERED: CEPH250C PO (21:46)
[2025-03-05] MEDS ORDERED: CEPH500T PO (06:52)
[2025-03-05] MEDS ORDERED: ZOFR4T PO (06:52)
[2025-03-05] MEDS ORDERED: DOCU-94 PO (06:52)
[2025-03-05] MEDS ORDERED: IBUP-1456 PO (06:52)
[2025-03-05] MEDS ORDERED: HYDR-4072 PO (06:52)
--- NOTE | 2025-03-05 06:56 | DVHDS2 ---
Physician Discharge Progress N Final Diagnosis: decreased movement DEMISE Operations or Procedures: Operations or Procedures nst reviwed no heart activity noted,sono confirmed demise Condition on Discharge: Good Disposition: Home Discharge Instructions: Diet: Regular Activity: No Restrictions, As Tolerated Follow Up/Referral: RETURN TO BIRTHPLACE TOMORROW 03/05/25 FOR YOUR Medications: CONTINUE TAKING ALL YOUR CURRENT MEDICATIONS PREVIOUSLY PRESCIBED. Follow Up Care: Specialist: 1d for cs Discharge Statement: "Patient was advised to return to the ER or call 911 if any headaches, dizziness, shortness of breath, chest pain, abdominal pain, bleeding, fevers, or worsening of medical condition. Patient was counseled about treatment plan, medications, possible side effects, patientverbalized understanding. All questions were answered to the best of my ability. This discharge took greater then 30 minutes in planning, reviewing documentation, counseling the patient, and discussing with other team members." Visit Coding OBGYN Date of Service: Mar 04, 2025 Billing Provider: PATRICIA RANDOLPH DO FAST FOOD COOK Common Visit Codes: 53245-BJNEQYL INP/OBS CARE (HIGH) FAST FOOD COOK Procedure Codes: 50995-31- NON-STRESS TEST PATRICIA RANDOLPH DO Mar 05, 2025 06:56
== END 2025-03-04 22:04 | disposition home or self-care (01) ==
LOC: LDRP 18:39
PROVIDERS: ADMIT Obstetrics & Gynecology; ATTEND Obstetrics & Gynecology
DX: O36.8130 Decreased fetal movements, third trimester, not applicable or unspecified (principal); O36.4XX0 Maternal care for intrauterine death, not applicable or unspecified; Z3A.37 37 weeks gestation of pregnancy; Z98.890 Other specified postprocedural states
CPT/HCPCS: 59025; 76819; 81002; 94760; A4649; G0378

== ENCOUNTER 2025-03-05 05:00 | Inpatient (IN) | payer MEDICAID ==
[2025-03-04 22:05] LABS: Hematocrit 36.2 % (36.0-46.0); Hemoglobin 12.1 g/dL (12.2-16.2); Mean Corpuscular Hemoglobin 29.9 pg (28.0-32.0); Mean Corpuscular Volume 89.5 fL (80.0-100.0); Nucleated Red Blood Cells % 0.1 %
[2025-03-04 22:12] LABS: Urine Protein, UAD 1+ (Negative)
[2025-03-04 22:20] LABS: INR 0.9 (0.9-1.15); Partial Thromboplastin Time 29.4 SEC (24.5-34.5); Prothrombin Time 9.6 sec (9.3-11.8)
[2025-03-04 22:21] LABS: Protein, Urine 54.5 mg/dL (1-14)
--- NOTE | 2025-03-04 22:22 | DVHHP ---
ADMIT DATE: 03/05/2025 CHIEF COMPLAINT: demise; desires primary . HISTORY OF PRESENT ILLNESS: The patient is a 29-year-old 3, para 2 with EDC 03/23, estimated gestational age of 37 weeks, admitted for primary secondary to demise. The patient desires to have , does not want to go through induction of labor. The patient understands risks, complications of surgery. She denies having any rupture of membranes or vaginal bleeding. She was last seen yesterday by Yasmine Nava, nurse practitioner. She started having decreased movement this morning. Ultrasound confirmed demise. PAST MEDICAL HISTORY: None. PAST SURGICAL HISTORY: None. SOCIAL HISTORY: None. FAMILY HISTORY: None. OBSTETRIC AND GYNECOLOGIC HISTORY: Two normal vaginal deliveries. REVIEW OF SYSTEMS: Consistent with HPI. PHYSICAL EXAMINATION: VITAL SIGNS: Stable, afebrile. HEENT: Within normal limits. CARDIOVASCULAR: Regular rate and rhythm. LUNGS: Clear to auscultation. BREASTS: Symmetrical, no masses. ABDOMEN: Gravid. . PELVIC: Deferred per the patient's request. EXTREMITIES: No clubbing, cyanosis or edema. IMPRESSION: * Intrauterine at 37 plus weeks, demise. * Desires primary . PLAN: Informed consent obtained for primary section. Risks and complications of surgery including infection, bleeding, hematoma formation, injury to bowel or bladder and surrounding organ, possibility of DVT, pulmonary embolism, and risks of anesthesia were discussed with the patient. Options reviewed. All questions answered. The patient fully understands. She wishes to proceed with planned procedure. DO VIANEY Thao/ALEXIS/VIBHA TID: [id number] RECEIPT: [id number]
[2025-03-04 22:26] LABS: Alanine Aminotransferase 10 U/L (7-40); Albumin 3.8 g/dL (3.2-4.8); Anion Gap 10 (5-15); BUN/Creatinine Ratio 33.3 (10.0-20.0); Blood Urea Nitrogen 18 mg/dL (9-23); Calcium 9.0 mg/dL (8.7-10.4); Carbon Dioxide 23 mmol/L (20-31); Chloride 106 mmol/L (98-107); Glucose 96 mg/dL (74-106); Potassium 3.5 mmol/L (3.5-5.1); Sodium 139 mmol/L (136-145); Total Protein 6.5 g/dL (5.7-8.2); Uric Acid 5.3 mg/dL (3.1-7.8)
[2025-03-04 22:27] LABS: Bilirubin, Total 0.7 mg/dL (0.2-1.0)
[2025-03-04 22:29] LABS: Alkaline Phosphatase 162 U/L (46-116)
[2025-03-04 22:34] LABS: Amphetamine Screen, Urine Neg (NEGATIVE); Barbiturate Scree,Urine Neg (NEGATIVE); Benzodiazephine Screen, Urine Neg (NEGATIVE); Cannabinoid Screen, Urine Neg (NEGATIVE); Cocaine Screen, Urine Neg (NEGATIVE); Opiate Scree,Urine Neg (NEGATIVE); Phencyclidine Screen, Urine Neg (NEGATIVE)
[~2025-03-05] VITALS: Ht 157.5 cm; Wt 74.8 kg
[2025-03-05] VITALS (19 sets, daily range): BP systolic 101–128; BP diastolic 64–86; PULSE 61–82; RESP 16–18; TEMP 97.9–98.4; O2SAT 95–100
[~2025-03-05 05:00] MED LIST changes: +CEPH250C PO
[2025-03-05] MEDS: METOCLOPRAMIDE HCL 5MG/ml INJ 2ml VIAL IV ONE (05:15)
[2025-03-05] MEDS: SODIUM CITR/CITRIC ACID ORAL SOLN 30 ML PO ONE (05:15)
[2025-03-05] MEDS: LACTATED RINGER'S 1,000 ML IV SCH (05:59)
[2025-03-05] MEDS ORDERED: ZOFR4T PO (06:52)
[2025-03-05] MEDS ORDERED: IBUP-1456 PO (06:52)
[2025-03-05] MEDS ORDERED: CEPH500T PO (06:52)
[2025-03-05] MEDS ORDERED: DOCU-94 PO (06:52)
[2025-03-05] MEDS ORDERED: HYDR-4072 PO (06:52)
[2025-03-05] MEDS ORDERED: ceFAZolin 1GM/50ML 50 ML IV SCH (07:00)
[2025-03-05] MEDS: GUM (CHEWING) 1 GUM CHEW CHEW ONE (07:00)
[2025-03-05] MEDS ORDERED: LACT. RINGERS/OXYTOCIN 20UNITS 1,000 ML IV ONE (07:00)
[2025-03-05] MEDS: TETRACAINE 1% INJ 2 ML VIAL IJ ONE (07:01)
[2025-03-05] MEDS: ceFAZolin 2 GM/D5W50ml 50 ML IV ONE (07:02)
--- NOTE | 2025-03-05 08:01 | DVHOP2 ---
Operative Report DATE OF OPERATION: 03/05/25 PREOPERATIVE DIAGNOSES: iup at 37wks demise,desires pcs POSTOPERATIVE DIAGNOSES: same SURGEON: Maria C Rae D.O./sandra ANESTHESIOLOGIST: alverto TYPE OF ANESTHESIA : spinal CONSENT: The patient was informed of the risks and benefits of the procedure. The patient was informed of the risks and benefits of the procedure. These include but are not limited to , complications of anesthesia, postoperative infection, incomplete relief of symptoms, recurrence of symptoms, damage to blood vessels, nerves and tendons, deep venous thrombosis, pulmonary embolism and possible need for repeat surgery in the future. FINDINGS: Baby [f] with Apgars of [0] and [0]. Grossly normal appearing tubes and ovaries.cord around left leg PROCEDURES: Primary low transverse section. PROCEDURE IN DETAIL: The patient was taken to the operating room. She already had an epidural in place. She was then placed in supine position with a leftward tilt. A Pfannenstiel skin incision was made 2 cm above the symphysis pubis. This incision was carried to the underlying layer of fascia. The fascia was nicked in the midline. The incision was extended laterally. The superior aspect of the fascial incision was grasped and elevated. The same procedure was done to the inferior aspect of the fascial incision. The rectus muscles were then in the midline. Peritoneum was identified and entered. Peritoneal incision was extended superiorly and inferiorly with good visualization of the bladder. Bladder blade was inserted. Vesicouterine peritoneum was identified and entered. Lower uterine segment was incised in a transverse fashion. The infant was delivered from vertex presentation. Infant was baby [f] with Apgars [0] and [0].there was a cord around baby"s left leg. Placenta was then removed manually. Uterus was exteriorized and cleared of all clots and debris. The incision was repaired using 0 Vicryl in a double-layered fashion. No bleeding was noted. Uterus was then returned to the abdomen. The gutters were cleared off all clots and debris. Peritoneum was closed using 0 Vicryl, fascia was closed using 0 Maxon, and skin was closed using martinez. The patient tolerated the procedure well. She was taken to the recovery room in stable condition. ESTIMATED BLOOD LOSS: Estimated blood loss was noted to be 500 mL. Visit Coding OBN Date of Service: Mar 05, 2025 Billing Provider: MARIA C RAE DO INVESTMENT TRADER Common Visit Codes: 38384-BBHWNEQ INP/OBS CARE (HIGH) INVESTMENT TRADER Procedure Codes: 71663-J-BKEFLOY DELIVERY ONLY MARIA C RAE DO Mar 05, 2025 08:01
--- NOTE | 2025-03-05 08:03 | POSTOP ---
Post-Operative Note Post-Operative Note Preop Diagnosis iup at 37wks with demise desires pcs Postop Diagnosis: same Operation performed pltcs Specimen baby girl,apgars 0 /0 Anesthesia: Regional Anesthesiologist: alverto Blood Loss(fluid mgmt) 500ml Surgeon Patricia [employer] sandra Implant na Complications & Mgmt none Date 03/05/25 Time 08:01 Visit Coding OBGYN Date of Service: Mar 05, 2025 Billing Provider: PATRICIA RAE DO INTERIOR MECHANIC Common Visit Codes: 35778-CWFOAUI INP/OBS CARE (HIGH) INTERIOR MECHANIC Procedure Codes: 27133-U-NOTGFTK DELIVERY ONLY PATRICIA RAE DO Mar 05, 2025 08:03
[2025-03-05] MEDS ORDERED: MIDAZOLAM HCL 2MG/2ML 2ml VIAL (1mg/ml) IV PRN (08:45)
[2025-03-05] MEDS ORDERED: HYDROmorphone HCL 2 MG/ML VL/or syr IV PRN ×2 (08:45)
[2025-03-05] MEDS ORDERED: ONDANSETRON HCL 4 MG/2 ML VIAL IV PRN ×2 (08:45)
[2025-03-05] MEDS ORDERED: hydrALAZINE HCL 20 MG/ML VL IV PRN (08:45)
[2025-03-05] MEDS ORDERED: NALOXONE HCL 0.4 MG/ML VIAL IV PRN (08:45)
[2025-03-05] MEDS ORDERED: diphenhydrAMINE HCL 50 MG/1 ML VL IV PRN (08:45)
[2025-03-05] MEDS: ONDANSETRON HCL 4 MG/2 ML VIAL IV PRN (09:18)
[2025-03-05] MEDS ORDERED: MORPHINE SULFATE 4 MG/ML SYR/VIAL IV PRN (10:00)
[2025-03-05 10:06] LABS: Urine Amorphous Crystal FEW /hpf (None Seen); Urine Protein, UAD Negative (Negative)
[2025-03-05] MEDS: LACTATED RINGER'S 1,000 ML IV ONE (13:04)
[2025-03-05] MEDS: ACETAMINOPHEN IV 1000 MG/100ML (10MG/ML) IV PRN (13:05)
[2025-03-05] MEDS: ceFAZolin 1GM/50ML 50 ML IV SCH (14:36)
[2025-03-05 18:48] LABS: Protein, Urine 16.6 mg/dL (1-14)
[2025-03-05] MEDS: AMMONIA 0.33 ML INHALANT IN ONE (20:28)
[2025-03-05 21:32] LABS: Hematocrit 37.4 % (36.0-46.0); Hemoglobin 12.0 g/dL (12.2-16.2); Mean Corpuscular Hemoglobin 29.6 pg (28.0-32.0); Mean Corpuscular Volume 92.4 fL (80.0-100.0); Nucleated Red Blood Cells % 0.1 %
[2025-03-06] VITALS (11 sets, daily range): BP systolic 109–131; BP diastolic 64–84; PULSE 64–91; RESP 16–18; TEMP 98–98.6; O2SAT 94–97
--- NOTE | 2025-03-06 04:24 | DVHPN2 ---
Progress Note Date Seen: Mar 06, 2025 Subjective S: Lochia minimal. Clear liquid diet well tolerated. Ambulating and voiding well w/o feeling dizzy or lightheaded. Pain relieved with analgesics. Passing flatus but no BM yet. w/o problem Desires and Requests to be discharged tomorrow vital signs Vital Sign Date Time Temp Pulse Resp B/P (MAP) Pulse Ox O2 Delivery O2 Flow Rate FiO2 03/06/25 01:59 64 18 113/71 (85) 95 03/05/25 22:59 98.4 98.4 03/05/25 19:00 Room Air 03/05/25 08:25 6.0 03/05/25 08:25 100 Total Intake and Output 03/05/25 03/05/25 03/06/25 15:00 23:00 07:00 Output Total 950 ml 1700 ml Balance -950 ml -1700 ml medications Current Medications Medications Dose Ordered Sig/Miroslava Route Start Time Stop Time Status Last Admin Dose Admin Lactated Ringer's 1,000 ml @ 125 mls/hr Q8H IV 03/05/25 05:15 03/05/25 21:04 125 MLS/HR Ondansetron HCl 4 mg Q4HP PRN IV 03/05/25 07:00 03/05/25 13:04 4 MG Diphenhydramine HCl 25 mg Q4HP PRN IV 03/05/25 08:45 Ondansetron HCl 4 mg Q4HP PRN IV 03/05/25 08:45 Cancel Cefazolin Sodium 50 ml @ 100 mls/hr Q8H IV 03/05/25 15:00 03/06/25 07:29 03/05/25 22:08 100 MLS/HR Morphine Sulfate 2 mg Q4HP PRN IV 03/05/25 10:00 Acetaminophen 1,000 mg Q8HPRN PRN IV 03/05/25 10:00 03/06/25 09:59 03/05/25 21:04 1,000 MG laboratory and microbiology Laboratory Tests 03/05/25 21:02 03/04/25 21:48 Test 03/04/25 21:48 Range/Units Serum Glucose 96 74-106 mg/dL Objective O: A&O x3 NAD. Afebrile, VSS Chest: heart and lung sounds normal. Breasts: Nipples intact w/o cracks or soreness Abdomen: normal BS, soft, non-tender, no rebound or guarding, fundus firm @ U- 1, Lower abdominal Incision site with Sylke dressing on, same clean, dry and intact. No edema, erythema or induration Extremities: no edema or tenderness Lochia - minimal Assessment/Plan A/P: 29yo now Post operative & ppd #1 s/p Primary Section Stillbirth (IUFD) doing well. Blood Type: A Rh: Positive Rubella Immune Pain control with oral medications Bowel regimen: Increase fluid intake and fiber in diet, Laxative PRN PP BCM Plan: Undecided Discharge plan: May discharge home later today / tomorrow if condition remains stable per consultation with Robert Rae DO Plan discussed with: Patient, Spouse Visit Coding OBGYN Date of Service: Mar 06, 2025 Billing Provider: HEMALATHA TRAN CNM FARMWORKER FRUIT Common Visit Codes: 70346-[id number] INP/OBS CARE(HIGH) HEMALATHA TRAN CNM Mar 06, 2025 04:24
--- NOTE | 2025-03-06 04:46 | DVHDS2 ---
Discharge Summary Date of Admission Mar 05, 2025 at 05:00 Date of Discharge: Mar 08, 2025 Admitting Diagnosis <> IUP at 37w 3d <> IUFD <> Patient Desires / prefers Primary Section Wounds: Lower abdominal incision site with sylke dressing on, same C/D/I Labs/Diagnostic Data: Laboratory Results Test 03/05/25 21:02 03/05/25 09:00 03/04/25 21:48 03/04/25 21:30 White Blood Count 9.7 10^3/uL (4.4-10.8) Red Blood Count 4.05 10^6/uL (4.0-5.20) Hemoglobin 12.0 g/dL (12.2-16.2) Hematocrit 37.4 % (36.0-46.0) Mean Corpuscular Volume 92.4 fL (80.0-100.0) Mean Corpuscular Hemoglobin 29.6 pg (28.0-32.0) Mean Corpuscular Hemoglobin Concent 32.0 g/dL (32.0-36.0) Red Cell Distribution Width 13.8 % (11.8-14.3) Platelet Count 175 10^3/uL (140-450) Mean Platelet Volume 9.4 fL (6.9-10.8) Neutrophils (%) (Auto) 76.8 % (37.0-80.0) Lymphocytes (%) (Auto) 15.2 % (10.0-50.0) Monocytes (%) (Auto) 7.6 % (0.0-12.0) Eosinophils (%) (Auto) 0.3 % (0.0-7.0) Basophils (%) (Auto) 0.1 % (0.0-2.0) Neutrophils # (Auto) 7.5 10 ^3/uL (1.6-8.6) Lymphocytes # (Auto) 1.5 10 ^3/uL (0.4-5.4) Monocytes # (Auto) 0.7 10 ^3/uL (0-1.3) Eosinophils # (Auto) 0 10 ^3/uL (0-0.8) Basophils # (Auto) 0 10 ^3/uL (0-0.2) Nucleated Red Blood Cells 0.1 % Uric Acid 4.0 mg/dL (3.1-7.8) Urine Color Light-yellow (Yellow) Urine Clarity Hazy (Clear) Urine pH 7.5 (5.0-9.0) Urine Specific [place] 1.017 (1.001-1.035) Urine Protein Negative (Negative) Urine Ketones Negative (Negative) Urine Blood 1+ /uL (Negative) Urine Nitrite Negative (Negative) Urine Bilirubin Negative (Negative) Urine Urobilinogen Normal mg/dL (Negative) Urine Leukocyte Esterase Negative /uL (Negative) Urine RBC 63 /hpf (0 - 4) Urine Microscopic WBC < 1 /HPF (0-5) Urine Squamous Epithelial Cells Few /hpf (<5) Urine Amorphous Crystals Few /hpf (None Seen) Urine Bacteria Few /hpf (None Seen) Urine Creatinine 37.91 mg/dL (30.0-125.0) Urine Protein/Creatinine Ratio 0.44 Urine Glucose Normal mg/dL (Normal) Urine Total Protein 16.6 mg/dL (1-14) Prothrombin Time 9.6 sec (9.3-11.8) Prothrombin Time INR 0.90 (0.9-1.15) Activated Partial Thromboplast Time 29.4 SEC (24.5-34.5) Sodium Level 139 mmol/L (136-145) Potassium Level 3.5 mmol/L (3.5-5.1) Chloride Level 106 mmol/L (98-107) Carbon Dioxide Level 23 mmol/L (20-31) Anion Gap 10 (5-15) Blood Urea Nitrogen 18 mg/dL (9-23) Creatinine 0.54 mg/dL (0.550-1.02) Glomerular Filtration Rate Calc 126 mL/min (>90) BUN/Creatinine Ratio 33.3 (10.0-20.0) Serum Glucose 96 mg/dL (74-106) Calcium Level 9.0 mg/dL (8.7-10.4) Total Bilirubin 0.7 mg/dL (0.2-1.0) Aspartate Amino Transferase (AST) 15 U/L (13-40) Alanine Aminotransferase (ALT) 10 U/L (7-40) Alkaline Phosphatase 162 U/L (46-116) Total Protein 6.5 g/dL (5.7-8.2) Albumin 3.8 g/dL (3.2-4.8) Treponema pallidum Antibody Non-reactive (Negative) Urine Mucus Few (None Seen) Urine Opiates Screen Neg (NEGATIVE) Urine Fentanyl Screen Neg (NEGATIVE) Urine Barbiturates Screen Neg (NEGATIVE) Urine Phencyclidine Screen Neg (NEGATIVE) Urine Amphetamines Screen Neg (NEGATIVE) Urine Benzodiazepines Screen Neg (NEGATIVE) Urine Cocaine Screen Neg (NEGATIVE) Urine Cannabinoids Screen Neg (NEGATIVE) Other Laboratory Tests 03/05/25 21:02 03/04/25 21:48 Brief Hx & Hospital Course: Ms Puri was admitted on 03/05/25 at 37w 3d EGA for Primary Section. IUFD was diagnosed on 03/04/25. Delivery options discussed and patient decided she wants a Primary section. She had Section under Spinal anesthesia ( See Operative Note for details) She had Spinal headache that resolved with blood patch procedure by anesthesia provider Otherwise, Normal post-operative and course thus far; meeting milestones w/o any sign of infection or any other complication. Consults/Reason for consult Anesthesia consult for Spinal headache Operations or Procedures Primary Section under Spinal Anesthesia Condition at Discharge: Stable Final Diagnosis/Problems List same Discharge Disposition: Home Discharge Instruct/Medications Diet: Regular Diet comment: Routine regular diet rich in fiber, protein, iron and vitamin C with adequate fluid intake. Activity: See Comment Activity comment: Unrestricted. Advance as tolerated. Balance activities with rest periods. No heavy lifting, pushing or straining. Pelvic rest x 6weeks Follow Up/Referral: Follow up with OB Provider in 1 week Medications: > Docusate Sodium > Hydrocodone- Acetaminophen > Ibuprofen Scheduled Aspirin (Aspir-Low), 81 MG PO DAILY, (Reported) Cephalexin (Keflex Capsule), 500 MG PO Q6HP, (Reported) Docusate Sodium (Colace), 1 CAP PO BID Vit W/ Ferrous Fumara ( One Daily), 1 TAB PO DAILY, (Reported) Scheduled PRN Cephalexin Monohydrate (Cephalexin), 500 MG PO Q6HP PRN Hydrocodone-Acetaminophen (Hydrocodone/Acetaminophen 10-325 mg), 1 TAB PO Q6HPRN PRN Ibuprofen (Ibuprofen), 800 MG PO TID PRN Ibuprofen Micronized (Motrin Tablet), 600 MG PO Q6HP PRN Ondansetron Odt 4MG Tab (Zofran Po), 4 MG PO Q4HPRN PRN Discharge Statement: Post operative and self care instructions given. emergency signs and symptoms including but not limited to pre-eclampsia precautions and signs of infection, PPH & of PPD reviewed with patient. Follow up with OB provider on 03/10/25 "Patient was advised to return to the ER or call 911 if any headaches, dizziness, shortness of breath, chest pain, abdominal pain, bleeding, fevers, or worsening of medical condition. Patient was counseled about treatment plan, medications, possible side effects, patientverbalized understanding. All questions were answered to the best of my ability. This discharge took greater then 30 minutes in planning, reviewing documentation, counseling the patient, and discussing with other team members." Discharge Care Plan Problem Pain Goals Pain relieved, Pain controlled Instructions Take Rx medications, Notify MD of any issues, Provide comfort measures, Educate on timing of meds See pt D/C handouts Proper handwashing, Avoid infectious people, S/S to look for ASSESSMENT ASSESSMENT Hospital Course Ms Puri was admitted on 03/05/25 at 37w 3d EGA for Primary Section. IUFD was diagnosed on 03/04/25. Delivery options discussed and patient decided she wants a Primary section. She had Section under Spinal anesthesia ( See Operative Note for details) Normal post-operative and course thus far; meeting milestones w/o any sign of infection or complication. Assessment same Problems: (1) Headache, spinal, postoperative Assessments: Resolved after Blood patch procedure. Visit Coding OBGYN Date of Service: Mar 06, 2025 Billing Provider: HEMALATHA TRAN CNM LAMP MECHANIC Common Visit Codes: [id number]/OBS DISCH DAY >30MIN HEMALATHA TRAN CNM Mar 06, 2025 04:46
[2025-03-06 07:01] LABS: Hematocrit 35.1 % (36.0-46.0); Hemoglobin 12.0 g/dL (12.2-16.2); Mean Corpuscular Hemoglobin 30.1 pg (28.0-32.0); Mean Corpuscular Volume 87.9 fL (80.0-100.0); Nucleated Red Blood Cells % 0.1 %
[2025-03-06] MEDS ORDERED: LACTATED RINGER'S 1,000 ML IV SCH (07:15)
[2025-03-06] MEDS ORDERED: SODIUM CHLORIDE 0.9% 1,000 ML IV SCH (07:15)
[2025-03-06] MEDS: IBUPROFEN 800 MG TAB PO PRN (08:03)
[2025-03-06] MEDS: SIMETHICONE 80 MG CHEWABLE TABLET PO SCH (12:00)
[2025-03-06] MEDS: DOCUSATE SOD 100 MG CAP PO SCH (12:50)
[2025-03-06] MEDS: HYDROcodone-ACET 5/325MG TAB PO PRN (13:08)
--- NOTE | 2025-03-07 00:39 | DVHINCON2 ---
Date of Service if different f: Mar 06, 2025 Time of Service: 23:59 Consult Consult Note PSYCHIATRY L&D NEW CONSULT HPI: 29 yo F pt with no PPH seen today as pt scored 15 on depression scale. Psychiatry consulted for safety evaluation and recommendations in context of current presentation Pt reports this is her third but several days ago upon C-sxn, pt found to have demise / stillbirth, states "this was a shock for all of us, something so unexpected, i am trying to make sense of everything and figure out why this happened and what to do next". Reports feeling tired, insomnia, sad/miserable/tearful/anxious as reasons for mild elevation on scoring on PPDS. Pt is not experiencing any current feelings of major depression or feelings to harm self or others. Over the duration of her , pt denied having any feelings of depression or persistent sadness. Pt endorses some situational sad mood but denies hopelessness, helplessness, loss of interest, decreased energy, poor sleep/appetite, excessive guilt, anhedonia, or amotivation. Also denies panic symptoms, irritability/restlessness, zarina, or psychosis. denies hx of manic, psychotic, or major depressive episodes Pt currently does not have psychiatrist/therapist out in community. Never sought MH services in past. Currently not on any psychotropic agents. No prior psych med trials. Denies any ETOH, THC or IDU Never , lives with and two young boys, good support system noted. Unknown trauma hx. Unknown FH. No acute medical issues, NKDA Does not have hx of suicide attempts, SIB, or prior psych hospitalizations. Currently denies SI/HI. Denies history of violence, unprovoked aggression, impulsivity, emotional dysregulation, or assaultive behaviors. Does not have access to firearms. Identifies self/family as PPF. No safety concerns noted during encounter. MSE: General Appearance/Behavior: Alert and awake; appears stated age, overweight, fair grooming and hygiene; calm and cooperative, fair eye contact, no PMA/PMR, appears a bit tired Speech: coherent, rrr Thought Process: linear, logical, and goal-directed Thought Content: Abnormal Thoughts and Perceptions: None Homicidality / Violent Thoughts: None Suicidality: none Hallucinations: None Delusions: denies paranoia, persecutory, or grandiose delusions Obsessions /compulsions : None Judgment and Insight: fair judgment with fair insight Mood & Affect: "okay, little tired" with mood-congruent, appropriate Orientation: oriented to person, place, time Attention/Concentration: intact, follows conversation Memory: grossly intact Language: no unusual or inappropriate language Fund of Knowledge: appropriate Assessment: 29 yo F pt with no PPH seen today as pt scored 15 on depression scale s/p recent discovery of sudden demise Reports feeling tired, insomnia, sad/miserable/tearful/anxious as reasons for mild elevation on scoring on PPDS Denies SI/HI/AVH. Linear and goal directed in thought. Denies s/s of major depression, zarina or psychosis Presently, pt does not show any signs of immediate danger to self or others that would warrant a higher level of care. Thus, does not meet criteria for 5150 or inpatient psych admission as is not DTS, DTO or GD DX: Adjustment disorder with depressed mood. Uncomplicated bereavement Plan: Does not warrant inpatient psychiatric hospitalization or 5150 hold at this time No acute safety concerns Pt can be safely discharged back to current residence Does not warrant psychotropic med initiation at this time Supportive tx provided Provide MH resources prior to discharge per pts request for psychotherapy/grief counseling Instructed pt to call/text [phone] or return to ED if MH symptoms worsen or new onset SI/HI upon discharge Pt verbalized understanding and is receptive to above tx plan This case was discussed with L&D nurse/provider and all parties in agreement with above tx plan Hilario Smith MD Plan discussed with: Patient HILARIO SMITH MD Mar 07, 2025 00:39
[2025-03-07] MEDS: HYDROcodone-ACET 5/325MG TAB PO PRN (01:00)
--- NOTE | 2025-03-07 01:49 | DVHPN2 ---
Progress Note Date Seen: Mar 07, 2025 Subjective S: Lochia minimal. Regular diet well tolerated. Ambulating and voiding well w/o feeling dizzy or lightheaded. She reports TORIBIO, worse with sitting or standing and intensity decreases when laying down. Incisional Pain relieved with oral analgesics. Passing flatus but no BM yet. vital signs Vital Sign Date Time Temp Pulse Resp B/P (MAP) Pulse Ox O2 Delivery O2 Flow Rate FiO2 03/06/25 23:30 98.3 81 17 113/64 (80) 96 98.3 03/06/25 19:00 Room Air 03/05/25 08:25 6.0 03/05/25 08:25 100 Total Intake and Output 03/06/25 03/06/25 03/07/25 15:00 23:00 07:00 Output Total 500 ml Balance -500 ml medications Current Medications Medications Dose Ordered Sig/Miroslava Route Start Time Stop Time Status Last Admin Dose Admin Lactated Ringer's 1,000 ml @ 125 mls/hr Q8H IV 03/05/25 05:15 03/05/25 21:04 125 MLS/HR Ondansetron HCl 4 mg Q4HP PRN IV 03/05/25 07:00 03/05/25 13:04 4 MG Diphenhydramine HCl 25 mg Q4HP PRN IV 03/05/25 08:45 Ondansetron HCl 4 mg Q4HP PRN IV 03/05/25 08:45 Cancel Morphine Sulfate 2 mg Q4HP PRN IV 03/05/25 10:00 Lactated Ringer's 1,000 ml @ 100 mls/hr Q10H IV 03/06/25 07:15 UNV Sodium Chloride 1,000 ml @ 100 mls/hr Q10H IV 03/06/25 07:15 UNV Docusate Sodium 100 mg Q12HR PO 03/06/25 10:00 03/06/25 12:50 100 MG Dimethicone 80 mg QID PO 03/06/25 12:00 Ibuprofen 800 mg Q8HP PRN PO 03/06/25 07:15 03/06/25 20:20 800 MG Acetaminophen/ Hydrocodone Bitart 1 tab Q4HPRN PRN PO 03/06/25 07:15 03/07/25 01:00 1 TAB Acetaminophen/ Hydrocodone Bitart 2 tab Q4HPRN PRN PO 03/06/25 07:15 03/06/25 13:08 2 TAB laboratory and microbiology Laboratory Tests 03/06/25 06:06 03/04/25 21:48 Test 03/04/25 21:48 Range/Units Serum Glucose 96 74-106 mg/dL Objective O: A&O x3 NAD. Afebrile, VSS Chest: heart and lung sounds normal. Breasts: Nipples intact w/o cracks or soreness Abdomen: normal BS, soft, non-tender, no rebound or guarding, fundus firm @ U- 1, Lower abdominal Incision site with Sylke dressing on, same clean, dry and intact. No edema, erythema or induration Extremities: no edema or tenderness Lochia - minimal Assessment/Plan A/P: 29yo now G3, 3002, Post operative & ppd #2 s/p Primary Section doing well. Blood Type: A Rh: Positive Rubella Immune Pain control with oral medications Bowel regimen: Increase fluid intake and fiber in diet, Laxative PRN PP BCM Plan: undecided Discharge plan: To be determined based on subsequent assessment of patient's condition and symptoms. Needs to be assessed by Anesthesia Provider to r/o spinal TORIBIO Plan discussed with: Patient Visit Coding OBGYN Date of Service: Mar 07, 2025 Billing Provider: HEMALATHA TRAN CNM QUALITY CONTROL SCIENTIST Common Visit Codes: [id number] INP/OBS CARE(HIGH) HEMALATHA TRAN CNM Mar 07, 2025 01:49
[2025-03-07 03:00] VITALS: BP 114/61; PULSE 74; RESP 16; TEMP 98; O2SAT 96
[2025-03-07 07:00] VITALS: BP 129/74; PULSE 83; RESP 16; TEMP 98; O2SAT 96
[2025-03-07 11:03] VITALS: BP 134/78; PULSE 83; RESP 17; TEMP 98; O2SAT 96
[2025-03-07 14:39] VITALS: BP 130/79; PULSE 76; RESP 16; TEMP 98; O2SAT 96
[2025-03-07] MEDS ORDERED: TERBUTALINE SULFATE 1 MG/ML 1ML VIAL SC SCH (18:00)
[2025-03-07] MEDS ORDERED: NIFEdipine 10 MG CAP PO ONE (18:00)
[2025-03-07 19:00] VITALS: BP 141/88; PULSE 84; RESP 20; TEMP 98; O2SAT 99
[2025-03-07 22:32] VITALS: BP 133/80; PULSE 79; RESP 20; TEMP 98.8; O2SAT 99
[2025-03-08 03:03] VITALS: BP 120/73; PULSE 82; RESP 16; TEMP 98.6; O2SAT 96
--- NOTE | 2025-03-08 04:00 | DVHPN2 ---
Progress Note Date Seen: Mar 08, 2025 Subjective S: Lochia minimal. Regular diet well tolerated. Ambulating and voiding well w/o feeling dizzy or lightheaded. Headache has resolved following blood patch by anesthesiologist. Incisional Pain relieved with oral analgesics. Passing flatus and has had a BM. Desires and Requests to be discharged today vital signs Vital Sign Date Time Temp Pulse Resp B/P (MAP) Pulse Ox O2 Delivery O2 Flow Rate FiO2 03/08/25 03:03 98.6 82 16 120/73 (89) 96 98.6 03/07/25 19:00 Room Air medications Current Medications Medications Dose Ordered Sig/Miroslava Route Start Time Stop Time Status Last Admin Dose Admin Lactated Ringer's 1,000 ml @ 125 mls/hr Q8H IV 03/05/25 05:15 03/05/25 21:04 125 MLS/HR Ondansetron HCl 4 mg Q4HP PRN IV 03/05/25 07:00 03/05/25 13:04 4 MG Diphenhydramine HCl 25 mg Q4HP PRN IV 03/05/25 08:45 Ondansetron HCl 4 mg Q4HP PRN IV 03/05/25 08:45 Cancel Morphine Sulfate 2 mg Q4HP PRN IV 03/05/25 10:00 Lactated Ringer's 1,000 ml @ 100 mls/hr Q10H IV 03/06/25 07:15 UNV Sodium Chloride 1,000 ml @ 100 mls/hr Q10H IV 03/06/25 07:15 UNV Docusate Sodium 100 mg Q12HR PO 03/06/25 10:00 03/07/25 21:35 100 MG Dimethicone 80 mg QID PO 03/06/25 12:00 03/07/25 21:35 80 MG Ibuprofen 800 mg Q8HP PRN PO 03/06/25 07:15 03/07/25 12:20 800 MG Acetaminophen/ Hydrocodone Bitart 1 tab Q4HPRN PRN PO 03/06/25 07:15 03/07/25 01:00 1 TAB Acetaminophen/ Hydrocodone Bitart 2 tab Q4HPRN PRN PO 03/06/25 07:15 03/07/25 21:35 2 TAB Terbutaline Sulfate 0.25 mg Q20M SC 03/07/25 18:00 03/07/25 18:41 Cancel laboratory and microbiology Laboratory Tests 03/06/25 06:06 03/04/25 21:48 Test 03/04/25 21:48 Range/Units Serum Glucose 96 74-106 mg/dL Objective O: A&O x3 NAD. Afebrile, VSS Chest: heart and lung sounds normal. Breasts: Engorged. Cold pack and firm eliza applied. Nipples intact w/o cracks. Abdomen: normal BS, soft, non-tender, no rebound or guarding, fundus firm @ U- 1, Lower abdominal Incision site with Sylke dressing on, same clean, dry and intact. No edema, erythema or induration Extremities: no edema or tenderness Lochia - minimal Assessment/Plan A/P: 29yo now G3,3002 Post operative & ppd #3 s/p Primary Section doing well. Blood Type: A Rh: Positive Rubella Immune Pain control with oral medications Bowel regimen: Increase fluid intake and fiber in diet, Laxative PRN PP BCM Plan: Undecided Discharge plan: May discharge home later today if condition remains stable Plan discussed with: Patient, Spouse Visit Coding OBGYN Date of Service: Mar 08, 2025 Billing Provider: HEMALATHA TRAN CNM TRANSITIONAL [employer] TEACHER Common Visit Codes: [id number] SAME DATE (HIGH) HEMALATHA TRAN CNM Mar 08, 2025 04:00
--- NOTE | 2025-03-08 05:42 | DVHDS2 ---
Discharge Summary Date of Admission Mar 05, 2025 at 05:00 Date of Discharge: Mar 08, 2025 Wounds: Low abdominal oncision wound with sylke dressing on, same C/D/I Labs/Diagnostic Data: Laboratory Results Test 03/06/25 06:06 03/05/25 21:02 03/05/25 09:00 03/04/25 21:48 White Blood Count 10.8 10^3/uL (4.4-10.8) Red Blood Count 3.99 10^6/uL (4.0-5.20) Hemoglobin 12.0 g/dL (12.2-16.2) Hematocrit 35.1 % (36.0-46.0) Mean Corpuscular Volume 87.9 fL (80.0-100.0) Mean Corpuscular Hemoglobin 30.1 pg (28.0-32.0) Mean Corpuscular Hemoglobin Concent 34.2 g/dL (32.0-36.0) Red Cell Distribution Width 13.8 % (11.8-14.3) Platelet Count 184 10^3/uL (140-450) Mean Platelet Volume 9.6 fL (6.9-10.8) Neutrophils (%) (Auto) 79.7 % (37.0-80.0) Lymphocytes (%) (Auto) 11.9 % (10.0-50.0) Monocytes (%) (Auto) 7.8 % (0.0-12.0) Eosinophils (%) (Auto) 0.4 % (0.0-7.0) Basophils (%) (Auto) 0.2 % (0.0-2.0) Neutrophils # (Auto) 8.6 10 ^3/uL (1.6-8.6) Lymphocytes # (Auto) 1.3 10 ^3/uL (0.4-5.4) Monocytes # (Auto) 0.8 10 ^3/uL (0-1.3) Eosinophils # (Auto) 0 10 ^3/uL (0-0.8) Basophils # (Auto) 0 10 ^3/uL (0-0.2) Nucleated Red Blood Cells 0.1 % Uric Acid 4.0 mg/dL (3.1-7.8) Urine Color Light-yellow (Yellow) Urine Clarity Hazy (Clear) Urine pH 7.5 (5.0-9.0) Urine Specific [place] 1.017 (1.001-1.035) Urine Protein Negative (Negative) Urine Ketones Negative (Negative) Urine Blood 1+ /uL (Negative) Urine Nitrite Negative (Negative) Urine Bilirubin Negative (Negative) Urine Urobilinogen Normal mg/dL (Negative) Urine Leukocyte Esterase Negative /uL (Negative) Urine RBC 63 /hpf (0 - 4) Urine Microscopic WBC < 1 /HPF (0-5) Urine Squamous Epithelial Cells Few /hpf (<5) Urine Amorphous Crystals Few /hpf (None Seen) Urine Bacteria Few /hpf (None Seen) Urine Creatinine 37.91 mg/dL (30.0-125.0) Urine Protein/Creatinine Ratio 0.44 Urine Glucose Normal mg/dL (Normal) Urine Total Protein 16.6 mg/dL (1-14) Prothrombin Time 9.6 sec (9.3-11.8) Prothrombin Time INR 0.90 (0.9-1.15) Activated Partial Thromboplast Time 29.4 SEC (24.5-34.5) Sodium Level 139 mmol/L (136-145) Potassium Level 3.5 mmol/L (3.5-5.1) Chloride Level 106 mmol/L (98-107) Carbon Dioxide Level 23 mmol/L (20-31) Anion Gap 10 (5-15) Blood Urea Nitrogen 18 mg/dL (9-23) Creatinine 0.54 mg/dL (0.550-1.02) Glomerular Filtration Rate Calc 126 mL/min (>90) BUN/Creatinine Ratio 33.3 (10.0-20.0) Serum Glucose 96 mg/dL (74-106) Calcium Level 9.0 mg/dL (8.7-10.4) Total Bilirubin 0.7 mg/dL (0.2-1.0) Aspartate Amino Transferase (AST) 15 U/L (13-40) Alanine Aminotransferase (ALT) 10 U/L (7-40) Alkaline Phosphatase 162 U/L (46-116) Total Protein 6.5 g/dL (5.7-8.2) Albumin 3.8 g/dL (3.2-4.8) Treponema pallidum Antibody Non-reactive (Negative) Test 03/04/25 21:30 Urine Mucus Few (None Seen) Urine Opiates Screen Neg (NEGATIVE) Urine Fentanyl Screen Neg (NEGATIVE) Urine Barbiturates Screen Neg (NEGATIVE) Urine Phencyclidine Screen Neg (NEGATIVE) Urine Amphetamines Screen Neg (NEGATIVE) Urine Benzodiazepines Screen Neg (NEGATIVE) Urine Cocaine Screen Neg (NEGATIVE) Urine Cannabinoids Screen Neg (NEGATIVE) Other Laboratory Tests 03/06/25 06:06 03/04/25 21:48 Brief Hx & Hospital Course: Ms Puri was admitted on 03/05/25 at 37w 3d EGA for Primary Section. IUFD was diagnosed on 03/04/25. Delivery options discussed and patient decided she wants a Primary section. She had Section under Spinal anesthesia ( See Operative Note for details) She had Spinal headache that resolved with blood patch procedure by anesthesia provider Otherwise, Normal post-operative and course thus far; meeting milestones w/o any sign of infection or any other complication. Operations or Procedures Primary Section under Spinal Anesthesia Condition at Discharge: Stable Final Diagnosis/Problems List Resolved after Blood patch procedure. Discharge Disposition: Home Discharge Instruct/Medications Diet: Regular Diet comment: Routine regular diet rich in fiber, protein, iron and vitamin C with adequate fluid intake. Activity: See Comment Activity comment: Unrestricted. Advance as tolerated. Balance activities with rest periods. No heavy lifting, pushing or straining. Pelvic rest x 6weeks Follow Up/Referral: Follow up with OB Provider in 1 week Medications: > Docusate Sodium > Hydrocodone- Acetaminophen > Ibuprofen Scheduled Aspirin (Aspir-Low), 81 MG PO DAILY, (Reported) Cephalexin (Keflex Capsule), 500 MG PO Q6HP, (Reported) Docusate Sodium (Colace), 1 CAP PO BID Vit W/ Ferrous Fumara ( One Daily), 1 TAB PO DAILY, (Reported) Scheduled PRN Cephalexin Monohydrate (Cephalexin), 500 MG PO Q6HP PRN Hydrocodone-Acetaminophen (Hydrocodone/Acetaminophen 10-325 mg), 1 TAB PO Q6HPRN PRN Ibuprofen (Ibuprofen), 800 MG PO TID PRN Ibuprofen Micronized (Motrin Tablet), 600 MG PO Q6HP PRN Ondansetron Odt 4MG Tab (Zofran Po), 4 MG PO Q4HPRN PRN Discharge Statement: "Patient was advised to return to the ER or call 911 if any headaches, dizziness, shortness of breath, chest pain, abdominal pain, bleeding, fevers, or worsening of medical condition. Patient was counseled about treatment plan, medications, possible side effects, patientverbalized understanding. All questions were answered to the best of my ability. This discharge took greater then 30 minutes in planning, reviewing documentation, counseling the patient, and discussing with other team members." ASSESSMENT ASSESSMENT Hospital Course Ms Puri was admitted on 03/05/25 at 37w 3d EGA for Primary Section. IUFD was diagnosed on 03/04/25. Delivery options discussed and patient decided she wants a Primary section. She had Section under Spinal anesthesia ( See Operative Note for details) She had Spinal headache that resolved with blood patch procedure by anesthesia provider Otherwise, Normal post-operative and course thus far; meeting milestones w/o any sign of infection or any other complication. Assessment Resolved after Blood patch procedure. Problems: (1) Headache, spinal, postoperative Assessments: Resolved after Blood patch procedure. Visit Coding OBGYN Date of Service: Mar 08, 2025 Billing Provider: HEMALATHA TRAN CNM UNEMPLOYMENT CLAIMS ADJUDICATOR Common Visit Codes: [id number] DISCH DAY >30MIN HEMALATHA TRAN CNM Mar 08, 2025 05:42
[2025-03-08 07:17] VITALS: BP 125/73; PULSE 77; RESP 20; TEMP 98.7; O2SAT 99
== END 2025-03-08 10:28 | disposition home or self-care (01) | DRG 540 ==
LOC: LDRP 05:00
PROVIDERS: ADMIT Obstetrics & Gynecology; ATTEND Obstetrics & Gynecology
PROC: 10D00Z1 Extraction of Products of Conception, Low, Open Approach (ICD-10-PCS; principal; 2025-03-05 07:17)
DX: O36.4XX0 Maternal care for intrauterine death, not applicable or unspecified (principal); O23.13 Infections of bladder in pregnancy, third trimester; N30.01 Acute cystitis with hematuria; Z37.1 Single stillbirth; F43.21 Adjustment disorder with depressed mood; O99.344 Other mental disorders complicating childbirth; O89.4 Spinal and epidural anesthesia-induced headache during the puerperium; Z3A.37 37 weeks gestation of pregnancy
CPT/HCPCS: 36415; 80053; 80307; 81001; 82570; 84156; 84550; 85025; 85610; 85730; 86780; 86850; 86900; 86901; 94760; 94762; 96360; 96361; 96366; 96374; 96375; G0378; J0131; J2405